=== PATIENT | female | born 1980 | race Caucasian/White ===

== ENCOUNTER 2025-07-16 12:19 | Emergency (ER) | payer OTHER ==
[~2025-07-16] VITALS: Ht 154.9 cm; Wt 66.0 kg
[2025-07-16 12:25] VITALS: O2SAT 99
[2025-07-16] MEDS: LIDOCAINE 5% PATCH TOP STA (13:14)
[2025-07-16] MEDS: KETOROLAC 30MG/ML VIAL IM ONE (13:15)
[2025-07-16] MEDS ORDERED: LIDO700A30 TP (14:20)
[2025-07-16] MEDS ORDERED: IBUP-1455 MT (14:20)
[2025-07-16] MEDS ORDERED: CYCL10TA21 MT (14:20)
[2025-07-16 15:41] VITALS: BP 111/74; PULSE 94; RESP 18; TEMP 36.9; O2SAT 99
== END 2025-07-16 15:56 | disposition home or self-care (01) ==
LOC: ER 12:19
DX: M25.511 Pain in right shoulder (principal); M54.2 Cervicalgia; Z98.890 Other specified postprocedural states
CPT/HCPCS: 99284; 72040; 73030; 96372; J1885